=== PATIENT | male | born 1995 | race American Indian/Alaskan Native ===

== ENCOUNTER 2020-12-21 18:52 | Emergency (ER) | payer SELFPAY ==
[2020-12-21 18:58] VITALS: BP 128/92
--- NOTE | 2020-12-21 19:24 | Event Note ---
ED Screening Note Date of service: 12/21/20 Time: 19:22 ED Screening Note: pt c/o left sided numbness and tingling x 4 days. He reports SOB and nausea. He denies PINTO, dizziness, vision changes, speech changes, neck pain or back pain No significant pmhx This initial assessment/diagnostic orders/clinical plan/treatment(s) is/are subject to change based on patients health status, clinical progression and re- assessment by fellow clinical providers in the ED. Further treatment and workup at subsequent clinical providers discretion. Patient/guardian urged not to elope from the ED as their condition may be serious if not clinically assessed and managed. Initial orders include: CBC CMP head CT EKG trop
[2020-12-21 19:33] LABS: Basophils % (Auto) 0.6 % (0.0-1.8); Eosinophils % (Auto) 0.6 % (0.0-4.3); Hematocrit 43.1 % (35.5-45.6); Lymphocytes # (Auto) 2.1 K/mm3 (1.2-5.4); Lymphocytes % (Auto) 30.2 % (13.4-35.0); Mean Corpuscular HGB Conc 33 % (32-34); Mean Corpuscular Volume 82 fl (84-94); Monocytes # (Auto) 0.6 K/mm3 (0.0-0.8); Platelet Count 149 K/mm3 (140-440); Red Blood Count 5.29 M/mm3 (3.65-5.03); Red Cell Distribution Width 15.6 % (13.2-15.2)
[2020-12-21 19:53] LABS: Alanine Aminotransferase 29 units/L (7-56); Albumin 4.5 g/dL (3.9-5); BUN/Creatinine Ratio 9; Blood Urea Nitrogen 9 mg/dL (9-20); Calcium 9.4 mg/dL (8.4-10.2); Hemolysis Index 14
--- NOTE | 2020-12-21 20:04 | Cat Scan Report ---
CT HEAD WITHOUT CONTRAST INDICATION / CLINICAL INFORMATION: paresthesia left side. TECHNIQUE: All CT scans at this location are performed using CT dose reduction for ALARA by means of automated e xposure control. COMPARISON: None available. FINDINGS: HEMORRHAGE: No evidence of intracranial hemorrhage or extra-axial fluid collection. EXTRA-AXIAL SPACES: Cortical sulci, sylvian fissures and basilar cisterns have an unremarkable appear ance. VENTRICULAR SYSTEM: The third and lateral ventricles are of normal size and configuration. CEREBRAL PARENCHYMA: No areas of abnormal brain parenchymal attenuation are identified. There is no i ndication of recent infarction. MIDLINE SHIFT OR HERNIATION: There is no mass effect. CEREBELLUM / BRAINSTEM: Brainstem and cerebellum have an unremarkable appearance. MIDLINE STRUCTURES:No abnormalities of the pituitary gland or pineal region are identified. INTRACRANIAL VESSELS:No abnormalities are identified on this noncontrast head CT. ORBITS: visualized portions of the orbits have an unremarkable appearance. SOFT TISSUES of HEAD: No significant abnormality. CALVARIUM: Evaluation of bone windows reveals no abnormalities. PARANASAL SINUSES / MASTOID AIR CELLS: Visualized portions of the paranasal sinuses are free from inf lammatory mucosal disease. Mastoid air cells are normally pneumatized. ADDITIONAL FINDINGS: None. IMPRESSION: 1. Normal head CT without contrast. Signer Name: Ervin Hendrxi MD Signed: 12/21/2020 8:00 PM Workstation Name: [id number]
[2020-12-21 20:33] LABS: Amphetamine Screen,Urine Negative; Benzodiazepines Screen,Urine Negative; Cocaine Screen,Urine Negative; Methadone Screen,Urine Negative; Opiate Screen,Urine Negative
--- NOTE | 2020-12-21 20:43 | Emergency Department Report ---
ED General Adult HPI - General Chief complaint: Extremity Injury, Upper Stated complaint: LT THUMB PAINS Time Seen by Provider: 12/21/20 20:00 Source: patient Mode of arrival: Ambulatory Limitations: No Limitations - History of Present Illness Initial comments: 25-year old morbid obese -N[place]ien male presents to the emergency room complaining of left side body numbness on and off for the last 4 to 5 days. Patient states that the numbness is when he walks or stands for period of time. He denies any recent falls no trauma. He denies any pain. 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 Does not have a primary care provider. Has no known drug aller gies. Has a past medical history of asthma. - Related Data Previous Rx's Medication Instructions Recorded Last Taken Type Amoxicillin [Amoxicillin TAB] 875 mg PO BID 7 Days tablet 01/13/14 Unknown Rx oxyCODONE /ACETAMINOPHEN [Percocet 1 tab PO Q6HR PRN #15 tablet 01/13/14 Unknown Rx 5/325 mg] Ciprofloxacin HCl [Cipro] 500 mg PO Q12H #14 tab 06/21/14 Unknown Rx Allergies Allergy/AdvReac Type Severity Reaction Status Date / Time No Known Allergies Allergy Verified 06/20/14 18:11 ED Review of Systems ROS: Stated complaint: LT THUMB PAINS Other details as noted in HPI Comment: All other systems reviewed and negative ED Past Medical Hx - Past Medical History Previous Medical History?: Yes Hx Asthma: Yes - Surgical History Past Surgical History?: No - Social History Smoking Status: Current Some Day Smoker Substance Use Type: None - Medications Home Medications: Home Medications Medication Instructions Recorded Confirmed Last Taken Type Amoxicillin [Amoxicillin TAB] 875 mg PO BID 7 Days tablet 01/13/14 Unknown Rx oxyCODONE /ACETAMINOPHEN [Percocet 1 tab PO Q6HR PRN #15 tablet 01/13/14 Unknown Rx 5/325 mg] Ciprofloxacin HCl [Cipro] 500 mg PO Q12H #14 tab 06/21/14 Unknown Rx ED Physical Exam - General Limitations: No Limitations General appearance: alert, in no apparent distress - Head Head exam: Present: atraumatic, normocephalic - Eye Eye exam: Present: normal appearance - ENT ENT exam: Present: mucous membranes moist - Neck Neck exam: Present: normal inspection - Respiratory Respiratory exam: Present: normal lung sounds bilaterally. Absent: respiratory distress - Cardiovascular Cardiovascular Exam: Present: regular rate, normal rhythm. Absent: systolic murmur, diastolic murmur, rubs, gallop - GI/Abdominal GI/Abdominal exam: Present: soft, normal bowel sounds - Rectal Rectal exam: Present: deferred - Extremities Exam Extremities exam: Present: normal inspection - Back Exam Back exam: Present: normal inspection, full ROM. Absent: tenderness, vertebral tenderness - Neurological Exam Neurological exam: Present: alert, oriented X3, normal gait - Expanded Neurological Exam Expanded Cranial nerves: EOM's Intact: Normal, Gag Reflex: Normal, Tongue Deviation: Normal, Nystagmus: Normal, Facial Sensation: Normal, Facial Palsy with Forehead Movement: Normal, Facial Palsy without Forehead Movement: Normal Cerebellar function: Finger to Nose: Normal, Heel to Pal: Normal, Romberg: Normal Upper motor neuron: Rishi Neglect: Normal, Pronator Drift: Normal, Babinski Sign: Normal, Sensory Extinction: Normal Sensory exam: Upper Extremity Light Touch: Normal, Upper Extremity Pin Prick: Normal, Upper Extremity Temperature: Normal, UE 2 Point Discrimination: Normal, Lower Extremity Light Touch: Normal, Lower Extremity Pin Prick: Normal, Lower Extremity Temperature: Normal, LE 2 Point Discrimination: Normal Motor strength exam: RUE: 5, LUE: 5, RLE: 5, LLE: 5 Best Eye Response (Conner): (4) open spontaneously Best Motor Response (Bucks): (6) obeys commands Best Verbal Response (Bucks): (5) oriented Bucks Total: 15 - Psychiatric Psychiatric exam: Present: normal affect, normal mood - Skin Skin exam: Present: warm, dry, intact, normal color. Absent: rash ED Course Vital Signs 12/21/20 18:53 Temperature 98.0 F Pulse Rate 83 Respiratory 16 Rate Blood Pressure 128/92 O2 Sat by Pulse 99 Oximetry ED Medical Decision Making - Lab Data Result diagrams: 12/21/20 19:23 12/21/20 19:23 - EKG Data EKG shows normal: sinus rhythm (Irregularity) Rate: bradycardia (45) - Radiology Data Radiology results: report reviewed [facility] [address] [place] [address] Cat Scan Report Signed Patient: CARRI MARTE MR#: [id number] : 1995 Acct:[id number] Age/Sex: 25 / M ADM Date: 12/21/20 Loc: ED Attending Dr: Ordering Physician: JÚNIOR PLUMMER Date of Service: 12/21/20 Procedure(s): CT head/brain wo con Accession Number(s): [id number] cc: JÚNIOR PLUMMER CT HEAD WITHOUT CONTRAST INDICATION / CLINICAL INFORMATION: paresthesia left side. TECHNIQUE: All CT scans at this location are performed using CT dose reduction for ALARA by means of automated exposure control. COMPARISON: None available. FINDINGS: HEMORRHAGE: No evidence of intracranial hemorrhage or extra-axial fluid collection. EXTRA-AXIAL SPACES: Cortical sulci, sylvian fissures and basilar cisterns have an unremarkable appearance. VENTRICULAR SYSTEM: The third and lateral ventricles are of normal size and configuration. CEREBRAL PARENCHYMA: No areas of abnormal brain parenchymal attenuation are identified. There is no indication of recent infarction. MIDLINE SHIFT OR HERNIATION: There is no mass effect. CEREBELLUM / BRAINSTEM: Brainstem and cerebellum have an unremarkable appearance. MIDLINE STRUCTURES:No abnormalities of the pituitary gland or pineal region are identified. INTRACRANIAL VESSELS:No abnormalities are identified on this noncontrast head CT. ORBITS: visualized portions of the orbits have an unremarkable appearance. SOFT TISSUES of HEAD: No significant abnormality. CALVARIUM: Evaluation of bone windows reveals no abnormalities. PARANASAL SINUSES / MASTOID AIR CELLS: Visualized portions of the paranasal sinuses are free from inflammatory mucosal disease. Mastoid air cells are normally pneumatized. ADDITIONAL FINDINGS: None. IMPRESSION: 1. Normal head CT without contrast. Signer Name: Ervin Hendrix MD Signed: 12/21/2020 8:00 PM Workstation Name: [id number] Transcribed By: Dictated By: Ervin Hendrix MD Electronically Authenticated By: Ervin Hendrix MD Signed Date/Time: 12/21/201999 DD/ 58 TD/TT: Print Cancel - Medical Decision Making 25-year old morbid obese -Nigerien male presents to the emergency room complaining of left side body numbness on and off for the last 4 to 5 days. Patient states that the numbness is when he walks or stands for period of time. He denies any recent falls no trauma. He denies any pain. 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 Does not have a primary care provider. Has no known drug allergies. Has a past medical history of asthma. Vital signs are stable. Labs are unremarkable and nonactionable. EKG shows bradycardic with a regular rate. Rate 49 compared to heart rate on vital signs of 83. CAT scan of head shows normal examination. Normal neurological exam. Positive UDS of marijuana. Discussed with patient to follow-up with a neurologist and a primary care provider. Critical care attestation.: If time is entered above; I have spent that time in minutes in the direct care of this critically ill patient, excluding procedure time. ED Disposition Clinical Impression: Left sided numbness, Cannabis abuse Disposition: - TO HOME OR SELFCARE Is pt being admited?: No Does the pt Need Aspirin: No Condition: Stable Instructions: Paresthesia, [id number] Additional Instructions: CAT scans negative for any abnormalities, neurological exam is within normal limits blood work is stable urinalysis negative for any infection urine toxicology positive for marijuana. It is very important for you to follow-up with a neurologist and a primary care provider I have listed the information below for your convenience Referrals: ELSIE VARGAS MD [Primary Care Provider] - 3-5 Days RIGOBERTO HUBBARD II, MD [Staff Physician] - 3-5 Days MARIA DEL CARMEN BURGOS MD [Staff Physician] - 3-5 Days
[2020-12-21 20:46] LABS: Bilirubin,Urine NEG (Negative); Blood,Urine NEG (Negative); Color,Urine Amber (Yellow); Mucus,Urine 3+ /HPF
[2020-12-21 20:49] LABS: Cannabinoid Screen,Urine Positive
== END 2020-12-21 20:45 | disposition home or self-care (01) ==
LOC: ED 18:52
DX: F12.10 Cannabis abuse, uncomplicated (principal); R20.2 Paresthesia of skin; F17.200 Nicotine dependence, unspecified, uncomplicated; J45.909 Unspecified asthma, uncomplicated; Z79.899 Other long term (current) drug therapy
CPT/HCPCS: 36415; 70450; 80053; 80307; 81001; 84484; 85025; 93005

== ENCOUNTER 2021-01-08 09:13 | Emergency (ER) | payer SELFPAY ==
[2021-01-08 10:14] VITALS: BP 142/87
[2021-01-08 11:22] LABS: Basophils % (Auto) 0.7 % (0.0-1.8); Eosinophils % (Auto) 0.8 % (0.0-4.3); Hematocrit 43.8 % (35.5-45.6); Hemoglobin 14.4 gm/dl (11.8-15.2); Lymphocytes # (Auto) 1.1 K/mm3 (1.2-5.4); Mean Corpuscular HGB Conc 33 % (32-34); Mean Corpuscular Volume 81 fl (84-94); Monocytes # (Auto) 0.4 K/mm3 (0.0-0.8); Monocytes % (Auto) 8.4 % (0.0-7.3); Platelet Count 157 K/mm3 (140-440); Red Cell Distribution Width 15.8 % (13.2-15.2)
[2021-01-08 11:38] LABS: BUN/Creatinine Ratio 6; Blood Urea Nitrogen 6 mg/dL (9-20); Calcium 9.7 mg/dL (8.4-10.2); Hemolysis Index 3
--- NOTE | 2021-01-08 12:24 | Emergency Department Report ---
ED Palpitations HPI - General Chief Complaint: Chest Pain Stated Complaint: SOB/ HEART FLURRY Time Seen by Provider: 01/08/21 12:15 Source: patient Mode of arrival: Ambulatory Limitations: No Limitations - History of Present Illness MD Complaint: palpitations -: Gradual Context: occured during rest Associated Symptoms: chest pain (Vague left shoulder chest pressure). denies: shortness of breath, near-syncope, nausea/vomiting, diaphoresis, parasthesias, feeling of impending doom, muscle cramps - Related Data Previous Rx's Medication Instructions Recorded Last Taken Type Amoxicillin [Amoxicillin TAB] 875 mg PO BID 7 Days tablet 01/13/14 Unknown Rx oxyCODONE /ACETAMINOPHEN [Percocet 1 tab PO Q6HR PRN #15 tablet 01/13/14 Unknown Rx 5/325 mg] Ciprofloxacin HCl [Cipro] 500 mg PO Q12H #14 tab 06/21/14 Unknown Rx Allergies Allergy/AdvReac Type Severity Reaction Status Date / Time No Known Allergies Allergy Verified 06/20/14 18:11 ED Review of Systems ROS: Stated complaint: SOB/ HEART FLURRY Other details as noted in HPI Comment: All other systems reviewed and negative ED Past Medical Hx - Past Medical History Previous Medical History?: Yes Hx Asthma: Yes - Surgical History Past Surgical History?: No - Social History Smoking Status: Current Every Day Smoker Substance Use Type: None - Medications Home Medications: Home Medications Medication Instructions Recorded Confirmed Last Taken Type Amoxicillin [Amoxicillin TAB] 875 mg PO BID 7 Days tablet 01/13/14 Unknown Rx oxyCODONE /ACETAMINOPHEN [Percocet 1 tab PO Q6HR PRN #15 tablet 01/13/14 Unknown Rx 5/325 mg] Ciprofloxacin HCl [Cipro] 500 mg PO Q12H #14 tab 06/21/14 Unknown Rx ED Physical Exam - General Limitations: No Limitations General appearance: alert, in no apparent distress - Head Head exam: Present: atraumatic, normocephalic - Eye Eye exam: Present: normal appearance, PERRL, EOMI Pupils: Present: normal accommodation - ENT ENT exam: Present: normal exam, normal orophraynx, mucous membranes moist, TM's normal bilaterally - Neck Neck exam: Present: normal inspection, full ROM - Respiratory Respiratory exam: Present: normal lung sounds bilaterally. Absent: respiratory distress - Cardiovascular Cardiovascular Exam: Present: regular rate, normal rhythm. Absent: systolic murmur, diastolic murmur, rubs, gallop - GI/Abdominal GI/Abdominal exam: Present: soft, normal bowel sounds. Absent: distended, tenderness, hyperactive bowel sounds, hypoactive bowel sounds, organomegaly, mass, bruit - Rectal Rectal exam: Present: deferred - Extremities Exam Extremities exam: Present: normal inspection, normal capillary refill - Back Exam Back exam: Present: normal inspection. Absent: CVA tenderness (R), CVA tenderness (L), paraspinal tenderness, vertebral tenderness - Neurological Exam Neurological exam: Present: alert, oriented X3, CN II-XII intact, normal gait - Psychiatric Psychiatric exam: Present: normal affect, normal mood. Absent: flat affect, manic, suicidal ideation - Skin Skin exam: Present: warm, dry, intact, normal color. Absent: rash, cyanosis, diaphoretic, urticaria ED Course Vital Signs 01/08/21 01/08/21 09:18 10:13 Temperature 98.1 F 98 F Pulse Rate 84 50 L Respiratory 18 18 Rate Blood Pressure 163/90 Blood Pressure 142/87 [right arm] O2 Sat by Pulse 100 100 Oximetry ED Medical Decision Making - Lab Data Result diagrams: 01/08/21 11:05 01/08/21 11:05 Lab Results 01/08/21 01/08/21 01/08/21 Range/Units 11:05 11:05 11:05 WBC 5.1 (4.5-11.0) K/mm3 RBC 5.40 H (3.65-5.03) M/mm3 Hgb 14.4 (11.8-15.2) gm/dl Hct 43.8 (35.5-45.6) % MCV 81 L (84-94) fl MCH 27 L (28-32) pg MCHC 33 (32-34) % RDW 15.8 H (13.2-15.2) % Plt Count 157 (140-440) K/mm3 Lymph % (Auto) 22.0 (13.4-35.0) % [place] % (Auto) 8.4 H (0.0-7.3) % Eos % (Auto) 0.8 (0.0-4.3) % Baso % (Auto) 0.7 (0.0-1.8) % Lymph # (Auto) 1.1 L (1.2-5.4) K/mm3 [place] # (Auto) 0.4 (0.0-0.8) K/mm3 Eos # (Auto) 0.0 (0.0-0.4) K/mm3 Baso # (Auto) 0.0 (0.0-0.1) K/mm3 Seg Neutrophils % 68.1 (40.0-70.0) % Seg Neutrophils # 3.5 (1.8-7.7) K/mm3 Sodium 136 L (137-145) mmol/L Potassium 4.5 (3.6-5.0) mmol/L Chloride 99.1 (98-107) mmol/L Carbon Dioxide 29 (22-30) mmol/L Anion Gap 12 mmol/L BUN 6 L (9-20) mg/dL Creatinine 1.0 (0.8-1.3) mg/dL Estimated GFR > 60 ml/min BUN/Creatinine Ratio 6 % Glucose 93 (75-100) mg/dL Calcium 9.7 (8.4-10.2) mg/dL TSH 1.600 (0.270-4.200) mlU/mL - Medical Decision Making Patient presents to emergency department with palpitations and ECG is noted to be indicative of a normal sinus rhythm. Palpitations are unlikely secondary to other concomitant causes such as pulmonary embolus or acute coronary syndrome. The immediate cause is not apparent. Potential causes considered include but are not limited to infection, hypothyroidism, bone embolism, pericarditis, dehydration, anemia, pheochromocytoma, drug and alcohol withdrawal or intox ication among other things. Despite the evaluation including history, examination, testing, the cause of the palpitations remains unclear however the history, exam, the chest do not raise concern for any of the aforementioned diagnoses. Disposition; during emergency stay the patient's vital signs and symptoms were stable concerning Critical care attestation.: If time is entered above; I have spent that time in minutes in the direct care of this critically ill patient, excluding procedure time. ED Disposition Clinical Impression: Palpitations, Bradycardia on ECG Disposition: TO HOME OR SELFCARE Is pt being admited?: No Does the pt Need Aspirin: No Condition: Stable Instructions: Bradycardia, Adult, Palpitations, Ambulatory Cardiac Monitoring Referrals: AJAY CHEUNG MD [Staff Physician] - 3-5 Days PRIMARY CARE, [Primary Care Provider] - 3-5 Days
--- NOTE | 2021-01-08 14:48 | Electrocardiograph Report ---
[facility] Test Date: 2021-01-08 Test Time: 09:25:35 Pat Name: CARRI MARTE Department: Room: Gender: M Jive Developer: SIDNEY : 1995 Requested By: ED DOC Order Number: [id number] Reading MD: Uvaldo Kellogg Measurements Intervals [place] Rate: 81 P: 71 NV: 209 QRS: 34 QRSD: 103 T: 39 QT: 403 QTc: 468 Interpretive Statements Sinus rhythm Borderline prolonged NV interval Probable left atrial enlargement No previous ECG available for comparison Electronically Signed On 01-08-2021 14:48:32 EDT by Uvaldo Kellogg
--- NOTE | 2021-01-08 14:49 | Electrocardiograph Report ---
[facility] Test Date: 2021-01-08 Test Time: 10:18:47 Pat Name: CARRI MARTE Department: Room: Gender: M Grants Analyst: JENNIFER : 1995 Requested By: ELIZ RUIZ Order Number: [id number] Reading MD: Uvaldo Kellogg Measurements Intervals [place] Rate: 48 P: 52 SD: 177 QRS: 37 QRSD: 106 T: 31 QT: 453 QTc: 406 Interpretive Statements Sinus bradycardia with irregular rate Compared to ECG 01/08/2021 09:25:35 Electronically Signed On 01-08-2021 14:49:10 EDT by Uvaldo Kellogg
== END 2021-01-08 12:41 | disposition home or self-care (01) ==
LOC: ED 09:13
DX: R00.2 Palpitations (principal); R00.1 Bradycardia, unspecified; J45.909 Unspecified asthma, uncomplicated; F17.200 Nicotine dependence, unspecified, uncomplicated; Z79.899 Other long term (current) drug therapy
CPT/HCPCS: 36415; 80048; 84443; 85025; 93005; 99283

== ENCOUNTER 2021-06-15 21:22 | Emergency (ER) | payer SELFPAY ==
[2021-06-15 22:54] VITALS: BP 144/72
[2021-06-16 00:27] LABS: Bilirubin,Urine NEG (Negative); Blood,Urine NEG (Negative); Color,Urine Amber (Yellow); Mucus,Urine 3+ /HPF
--- NOTE | 2021-06-16 02:30 | Emergency Department Report ---
ED Male HPI - General Chief complaint: Urogenital-Male Stated complaint: BURNING WHILE URINATING Time Seen by Provider: 06/15/21 23:45 Source: patient Mode of arrival: Ambulatory Limitations: No Limitations - History of Present Illness Initial comments: 18-year-old -Welsh male presents emerged department complaining of having some dysuria over the last couple days and advised come to emergency department by his girlfriend reports no testicular pain, no hematuria no fevers, chills, sweats no penile discharge no nausea vomiting no abdomen pain. - Related Data Previous Rx's Medication Instructions Recorded Last Taken Type Amoxicillin [Amoxicillin TAB] 875 mg PO BID 7 Days tablet 01/13/14 Unknown Rx oxyCODONE /ACETAMINOPHEN [Percocet 1 tab PO Q6HR PRN #15 tablet 01/13/14 Unknown Rx 5/325 mg] Ciprofloxacin HCl [Cipro] 500 mg PO Q12H #14 tab 06/21/14 Unknown Rx metroNIDAZOLE [Flagyl] 2,000 mg PO ONCE #4 tab 06/16/21 Unknown Rx Allergies Allergy/AdvReac Type Severity Reaction Status Date / Time No Known Allergies Allergy Verified 06/20/14 18:11 ED Review of Systems ROS: Stated complaint: BURNING WHILE URINATING Other details as noted in HPI Comment: All other systems reviewed and negative ED Past Medical Hx - Past Medical History Previous Medical History?: Yes Hx Asthma: Yes - Social History Smoking Status: Current Every Day Smoker Substance Use Type: None - Medications Home Medications: Home Medications Medication Instructions Recorded Confirmed Last Taken Type Amoxicillin [Amoxicillin TAB] 875 mg PO BID 7 Days tablet 01/13/14 Unknown Rx oxyCODONE /ACETAMINOPHEN [Percocet 1 tab PO Q6HR PRN #15 tablet 01/13/14 Unknown Rx 5/325 mg] Ciprofloxacin HCl [Cipro] 500 mg PO Q12H #14 tab 06/21/14 Unknown Rx metroNIDAZOLE [Flagyl] 2,000 mg PO ONCE #4 tab 06/16/21 Unknown Rx ED Physical Exam - General Limitations: No Limitations General appearance: alert, in no apparent distress - Head Head exam: Present: atraumatic, normocephalic - Eye Eye exam: Present: normal appearance - ENT ENT exam: Present: mucous membranes moist - Neck Neck exam: Present: normal inspection - Respiratory Respiratory exam: Present: normal lung sounds bilaterally. Absent: respiratory distress, wheezes, rales, rhonchi, chest wall tenderness, accessory muscle use, decreased breath sounds - Cardiovascular Cardiovascular Exam: Present: regular rate, normal rhythm. Absent: systolic murmur, diastolic murmur, rubs, gallop - GI/Abdominal GI/Abdominal exam: Present: soft, normal bowel sounds - Rectal Rectal exam: Present: deferred - Extremities Exam Extremities exam: Present: normal inspection - Back Exam Back exam: Present: normal inspection - Neurological Exam Neurological exam: Present: alert, oriented X3 - Psychiatric Psychiatric exam: Present: normal affect, normal mood - Skin Skin exam: Present: warm, dry, intact, normal color. Absent: rash ED Course Vital Signs 06/15/21 22:52 Temperature 98.1 F Pulse Rate 51 L Respiratory 18 Rate Blood Pressure 144/72 O2 Sat by Pulse 95 Oximetry Critical care attestation.: If time is entered above; I have spent that time in minutes in the direct care of this critically ill patient, excluding procedure time. ED Disposition Clinical Impression: Possible exposure to STD Disposition: 01 HOME / SELF CARE / HOMELESS Is pt being admited?: No Does the pt Need Aspirin: No Condition: Stable Instructions: Safe Sex Prescriptions: metroNIDAZOLE [Flagyl] 2,000 mg PO ONCE #4 tab Referrals: PRIMARY CARE, [Primary Care Provider] - 3-5 Days [facility] [Outside] - 3-5 Days
== END 2021-06-16 03:00 | disposition home or self-care (01) ==
LOC: ED 21:22
DX: Z20.2 Contact with and (suspected) exposure to infections with a predominantly sexual mode of transmission (principal); J45.909 Unspecified asthma, uncomplicated; F17.200 Nicotine dependence, unspecified, uncomplicated
CPT/HCPCS: 81001; 99283